=== PATIENT | male | born 1995 ===

== ENCOUNTER 2016-07-18 16:10 | Emergency (ER) | payer OTHER ==
[2016-07-18 16:18] VITALS: BP 150/63
--- NOTE | 2016-07-18 16:33 | UC ---
Head Injury HPI - HPI Summary HPI Summary: pt here with left side facial injury from baseball, line drive to left side of face/nose; did not lose consciousness; no difficulty breathing/swallowing at this time (here with team-mate and one of the players mom's/sent by team operational trainer). bloody production. + nauseated. starting to get a RODRIGUEZ. Denies LOC. denies otorhhea. He is from [place] for [employer]. - History Of Current Complaint Chief Complaint: UCHeadInjury Stated Complaint: FACIAL TRAUMA Time Seen by Provider: 07/18/16 16:19 - Allergies/Home Medications Allergies/Adverse Reactions: Allergies Allergy/AdvReac Type Severity Reaction Status Date / Time No Known Allergies Allergy Verified 07/18/16 16:17 Home Medications: Home Medications NK [No Home Medications Reported] 07/18/16 [History Confirmed 07/18/16] PMH/Surg Hx/FS Hx/Imm Hx Previously Healthy: Yes - Surgical History Surgical History: None - Family History Known Family History: Positive: Cardiac Disease - Social History Alcohol Use: Occasionally Substance Use Type: None Smoking Status (MU): Never Smoked Tobacco Review of Systems Constitutional: Negative Skin: Negative Eyes: Other - left eye bruise ENT: Negative, Other - left cheek and eye, nose swelling and bruising. Respiratory: Negative Cardiovascular: Negative Gastrointestinal: Negative Genitourinary: Negative Motor: Negative Neurovascular: Negative Musculoskeletal: Negative Neurological: Headache, Numbness - left face Psychological: Negative All Other Systems Reviewed And Are Negative: Yes Physical Exam Triage Information Reviewed: Yes Appearance: Well-Nourished, Pain Distress Vital Signs: Initial Vital Signs Temp 100 F 07/18/16 16:12 Pulse 91 07/18/16 16:12 Resp 17 07/18/16 16:12 BP 150/63 07/18/16 16:12 Pulse Ox 100 07/18/16 16:12 Vital Signs Reviewed: Yes Eye Exam: Normal Eyes: Positive: Conjunctiva Clear, Other: - mild swelling per-orbital with ecchymosis inferior left eye ENT: Positive: Hearing grossly normal, Pharynx normal. Negative: TMs normal - no otorrhea, TM intact Dental: Positive: Other: - no obvious fracture Neck exam: Normal Neck: Positive: Supple, Nontender, No Lymphadenopathy Respiratory Exam: Normal Respiratory: Positive: Lungs clear, Normal breath sounds, No respiratory distress, Other: - spitting up some blood. speaking nml sentences. Cardiovascular Exam: Normal Cardiovascular: Positive: RRR, No Murmur, Pulses Normal Abdomen Description: Positive: Nontender, Soft Bowel Sounds: Positive: Present Musculoskeletal Exam: Normal Neurological Exam: Normal Neurological: Positive: Alert Psychological Exam: Normal Skin Exam: Normal Head Injury Course/Dx - Course Course Of Treatment: significant left facial trauma, needs higher level of care in trauma center. they prefer [place] s/w [facility], Dr Feng who accepts pt. They decline ambulance and choose to go by private car. - Differential Dx/Diagnosis Differential Diagnosis/HQI/PQRI: Concussion Without LOC, Contusion, Hematoma, Intracranial Bleed, Mandible Fracture, Nasal Fracture, Orbital Fracture, Zygomatic Fracture Provider Diagnoses: left face swelling, trauma Discharge - Discharge Plan Condition: Fair Disposition: TRANS HIGHER LVL OF CARE FAC
[2016-07-18] MEDS ORDERED: Ibuprofen TAB* 600 MG PO ONE (16:34)
[2016-07-18] MEDS ORDERED: Ondansetron ODT TAB* 4 MG PO ONE (16:38)
[2016-07-18] MEDS ORDERED: Ondansetron ODT TAB* 4 MG ONE (16:48)
== END 2016-07-18 16:30 | disposition short-term general hospital (02) ==
LOC: UCCORT 16:10
DX: S09.93XA Unspecified injury of face, initial encounter (principal); W21.03XA Struck by baseball, initial encounter; Y93.64 Activity, baseball; Y92.320 Baseball field as the place of occurrence of the external cause; R11.0 Nausea
CPT/HCPCS: 99203; A9270-GY; G0463